=== PATIENT | female | born 1975 | race Caucasian/White ===

== ENCOUNTER 2023-05-21 14:03 | Outpatient (OUT) | payer MEDICARE, SELFPAY ==
--- NOTE | 2023-05-21 14:00 | ECG_ITS ---
[facility] Test Date: 2023-05-21 Pat Name: TYE RICHARDS Department: Room: - Gender: Female Air [employer]: : 1975 Requested By: [id number] Order Number: [id number] Reading MD: ERWIN DAVISON Measurements Intervals [place] Rate: 55 P: 11 SD: 104 QRS: 65 QRSD: 100 T: 41 QT: 438 QTc: 419 Interpretive Statements SINUS BRADYCARDIA WITH SHORT SD INTERVAL POSSIBLE RIGHT VENTRICULAR CONDUCTION DELAY [RSR (QR) IN V1/V2] No previous ECG available for comparison Electronically Signed On 05-21-2023 23:12:08 EST by ERWIN DAVISON
== END 2023-05-21 14:04 | disposition home or self-care (01) ==
DX: K59.1 Functional diarrhea (principal)
CPT/HCPCS: 93005